=== PATIENT | female | born 1995 | race Caucasian/White ===

== ENCOUNTER 2016-12-02 02:43 | Emergency (ER) | payer BC ==
[~2016-12-02] VITALS: Ht 165.1 cm; Wt 56.0 kg
[2016-12-02 02:51] VITALS: BP 134/85; PULSE 83; RESP 18; TEMP 98.2; O2SAT 97
[2016-12-02 03:02] VITALS: BP 134/85; PULSE 83; RESP 18; TEMP 98.2; O2SAT 97
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
--- NOTE | 2016-12-02 03:39 | RADHPO ---
EXAM DATE/TIME: 12/02/2016 03:06 [facility] COMPARISON: No previous studies available for comparison. INDICATIONS : Right great toe pain from injury tonight. MEDICAL HISTORY : None. SURGICAL HISTORY : None. ENCOUNTER: Initial ACUITY: 1 day PAIN SCORE: 8/10 LOCATION: Right foot FINDINGS: Three view examination of the right foot demonstrates a nondisplaced, complex fracture through the pr oximal phalanx of the first digit with both a vertical and horizontal component. Osseous structures a re otherwise intact. Regional sclerotic area involving the proximal metadiaphysis of the third metata rsal appears benign. CONCLUSION: 1. Nondisplaced comminuted fracture of the proximal phalanx of the first digit with both a horizontal and vertical component. 2. Benign-appearing sclerotic area in the proximal metadiaphysis of the third metatarsal. Maximiliano Koch MD on December 02, 2016 at 3:35 Board Certified Radiologist. This report was verified electronically.
[2016-12-02 04:00] VITALS: BP 125/74
== END 2016-12-02 04:04 | disposition home or self-care (01) ==
LOC: PHED 02:43
DX: S92.414A Nondisplaced fracture of proximal phalanx of right great toe, initial encounter for closed fracture (principal); W22.8XXA Striking against or struck by other objects, initial encounter
CPT/HCPCS: 73630; 99283; E0113; L3260